=== PATIENT | male | born 1970 | race Caucasian/White ===

== ENCOUNTER 2022-12-06 23:10 | Inpatient (IN) | payer OTHER ==
[~2022-12-06] VITALS: Ht 172.7 cm; Wt 120.2 kg
[~2022-12-06 23:10] MED LIST: AMARYL4 MG PO; BACTRIM DS 8001 TA1 PO; CEPHALEXIN500 M1 PO; CLINDAMYCIN HC300 MG PO; GABAPENTIN TAB600 MG PO; GABAPENTIN800 MG PO; GLIMEPIRIDE2 MG PO; LEVAQUIN750 M1 PO; Motrin,Rufen800 MG PO; NAPROSYN500 MG PO; NEURONTIN300 MG PO; QUDEXY XR50 MG PO; TROKENDI XR50 M1 PO
[2022-12-06 23:25] VITALS: BP 178/88
[2022-12-06] MEDS ORDERED: GEMFIBROZIL600 MG PO (23:32)
[2022-12-06] MEDS ORDERED: LANTUS SOL100 UNIT/1 SC (23:33)
[2022-12-06] MEDS ORDERED: LISINOPRIL10 M1 PO (23:33)
[2022-12-06] MEDS ORDERED: CYCLOBENZAPRIN7.5 M2 PO (23:33)
[2022-12-06] MEDS ORDERED: JARDIANCE25 MG PO (23:34)
[2022-12-06] MEDS ORDERED: VITAMIN D325 MCG PO (23:35)
[2022-12-06] MEDS ORDERED: SIMVASTATIN40 MG PO (23:35)
[2022-12-06] MEDS ORDERED: METFORMIN HYDR750 MG PO (23:35)
[2022-12-06] MEDS ORDERED: EFFIENT10 M1 PO (23:36)
[2022-12-06] MEDS ORDERED: TRULICITY1.5 MG/0.5 SC (23:36)
[2022-12-06] MEDS ORDERED: NOVOLOG100 UNIT/1 SQ (23:36)
[2022-12-06 23:37] LABS: BASO % 0.3 % (0.0-1.0); EOS # 0.1 10*3/uL (0.0-0.4); EOS % 0.6 % (1.0-4.0); HEMATOCRIT 38.8 % (42.0-52.0); LYMPH # 1.7 10*3/uL (1.3-4.4); LYMPH % 14.2 % (27.0-41.0); MEAN CELL VOLUME 83.3 fl (80.0-94.0); MEAN CORPUSCULAR HGB 28.5 pg (27.0-31.0); MEAN CORPUSCULAR HGB CONC 34.3 g/dl (33.0-37.0); MEAN PLATELET VOLUME 9.3 fl (9.6-12.3); MONO # 0.7 10*3/uL (0.1-1.0); NEUT # 9.2 10*3/uL (2.3-7.9); NEUT % 78.6 % (47.0-73.0); PLATELET COUNT AUTOMATED 333 10*3/uL (130-400); RED BLOOD COUNT 4.66 10*6/uL (4.50-5.90); RED CELL DISTRI WIDTH 13.8 % (0-14.5); WHITE BLOOD COUNT 11.7 10*3/uL (4.8-10.8)
[2022-12-06] MEDS ORDERED: ASPIRIN CHEWABL81 MG PO (23:37)
[2022-12-06] MEDS ORDERED: METOPROLOL SUCC50 M1 PO (23:37)
[2022-12-06 23:53] LABS: ALKALINE PHOSPHATASE 82 U/L (46-116); BUN 22 mg/dl (9-23); CHLORIDE 99 mmol/L (98-107); POTASSIUM 4.3 mmol/L (3.4-5.1); SGPT/ALT 29 U/L (10-49); TOTAL PROTEIN 7.2 gm/dL (6.0-8.0)
[2022-12-07 02:00] VITALS: BP 137/71
[2022-12-07 06:23] LABS: ACT PARTIAL THROMBO TIME 30.5 SECONDS (20.0-32.1); INTERNATIONAL NORM RATIO 0.9 (2.0-3.5)
[2022-12-07 06:28] LABS: BASO % 0.4 % (0.0-1.0); EOS # 0.1 10*3/uL (0.0-0.4); EOS % 1.1 % (1.0-4.0); HEMATOCRIT 34.7 % (42.0-52.0); LYMPH % 24.7 % (27.0-41.0); MEAN CELL VOLUME 85.5 fl (80.0-94.0); MEAN CORPUSCULAR HGB 28.3 pg (27.0-31.0); MEAN CORPUSCULAR HGB CONC 33.1 g/dl (33.0-37.0); MEAN PLATELET VOLUME 9.8 fl (9.6-12.3); MONO # 0.6 10*3/uL (0.1-1.0); MONO % 7.7 % (3.0-9.0); NEUT # 5.3 10*3/uL (2.3-7.9); NEUT % 65.9 % (47.0-73.0); PLATELET COUNT AUTOMATED 279 10*3/uL (130-400); RED BLOOD COUNT 4.06 10*6/uL (4.50-5.90); RED CELL DISTRI WIDTH 13.8 % (0-14.5); WHITE BLOOD COUNT 8.1 10*3/uL (4.8-10.8)
[2022-12-07 07:46] LABS: ALKALINE PHOSPHATASE 73 U/L (46-116); BUN 19 mg/dl (9-23); CHLORIDE 101 mmol/L (98-107); SGPT/ALT 31 U/L (10-49); TOTAL PROTEIN 6.3 gm/dL (6.0-8.0)
[2022-12-07 08:00] VITALS: BP 140/84
[2022-12-07 12:00] VITALS: BP 131/70
[2022-12-07 16:00] VITALS: BP 102/59
== END 2022-12-07 18:48 | disposition left against medical advice (07) | DRG 380 ==
LOC: ED 23:10 → EDHOLD 12-07 00:39 → 4E 12-07 01:13
PROVIDERS: Internal Medicine; ADMIT Family Medicine; ATTEND Family Medicine
DX: E11.69 Type 2 diabetes mellitus with other specified complication (principal); L03.116 Cellulitis of left lower limb; N18.9 Chronic kidney disease, unspecified; E11.65 Type 2 diabetes mellitus with hyperglycemia; S91.302A Unspecified open wound, left foot, initial encounter; E11.42 Type 2 diabetes mellitus with diabetic polyneuropathy; Z66 Do not resuscitate; L89.520 Pressure ulcer of left ankle, unstageable; Y92.89 Other specified places as the place of occurrence of the external cause; Z53.29 Procedure and treatment not carried out because of patient's decision for other reasons; S91.301A Unspecified open wound, right foot, initial encounter; E11.22 Type 2 diabetes mellitus with diabetic chronic kidney disease; X58.XXXA Exposure to other specified factors, initial encounter; Z95.5 Presence of coronary angioplasty implant and graft; Z91.041 Radiographic dye allergy status; Z79.82 Long term (current) use of aspirin; Z86.73 Personal history of transient ischemic attack (TIA), and cerebral infarction without residual deficits; Z79.4 Long term (current) use of insulin; Z79.899 Other long term (current) drug therapy; Z79.84 Long term (current) use of oral hypoglycemic drugs; Y93.89 Activity, other specified; Y99.8 Other external cause status; Z79.85 Long-term (current) use of injectable non-insulin antidiabetic drugs